=== PATIENT | female | born 1965 | race Caucasian/White ===

== ENCOUNTER → 2020-05-21 | Day surgery (SDC) | payer OTHER ==
[~2020-05-21] MED LIST: ASCORBIC ACID500 MG PO; LOVAZA1 GM PO; VITAMIN D325 MC2 PO; ZINC50 M1 PO
[2020-05-21 08:58] LABS: HCT 48.5 % (37.0-47.0); HGB 16.6 g/dl (12.5-16.0); MCH 29.2 pg (25.0-31.0); MCHC 34.2 g/dL (32.0-36.0); MCV 85.2 fL (78.0-100.0); MPV 10.1 fL (6.0-9.5); RBC 5.69 M/uL (4.20-5.40); RDW 12.5 % (11.5-14.0); WBC 9.9 K/uL (4.0-10.5)
[2020-05-21 09:12] LABS: ALBUMIN 4.4 g/dL (3.4-5.0); BILIRUBIN - TOTAL 0.7 mg/dL (0.2-1.0); BUN/CREAT RATIO (CALC) 19.4 RATIO; CREATININE 0.67 mg/dL (0.51-0.95); GLOBULIN (CALCULATION) 3.4 g/dL; TOTAL PROTEIN 7.8 g/dL (6.4-8.2)
== END | disposition home or self-care (01) ==
LOC: FAS 07:56
PROVIDERS: Surgery
DX: Z12.11 Encounter for screening for malignant neoplasm of colon (principal); Z83.71 Family history of colonic polyps; E78.00 Pure hypercholesterolemia, unspecified; G43.909 Migraine, unspecified, not intractable, without status migrainosus
CPT/HCPCS: 36415; 80053; J2704; J7120